=== PATIENT | male | born 1965 | race Caucasian/White ===

== ENCOUNTER 2017-04-21 12:59 | Inpatient (IN) | payer MEDICAID ==
[2017-04-21 13:35] LABS: Hematocrit 41 % (42-52); Hemoglobin 14.2 g/dl (14.0-18.0); Mean Corpuscular HGB Conc 35 g/dl (31-36); Mean Corpuscular Hemoglobin 33 pg (27-31); Mean Corpuscular Volume 95 fL (80-94); Mean Platelet Volume 8 um3 (7.4-10.4); Platelet Count 92 10^3/ul (150-450); Red Blood Count 4.34 10^6/ul (4.0-5.4); Red Cell Distribution Width 14 % (10.5-15); White Blood Count 5.9 10^3/ul (3.5-10.8)
[2017-04-21 13:40] LABS: EGFR Non-African American 89.8 (>60)
[2017-04-21 13:51] LABS: INR 0.99 (0.77-1.02)
[2017-04-21 14:27] LABS: ABS Basophils 0 10^3/ul (0-0.2); ABS Eosinophils 0 10^3/ul (0-0.6); ABS Monocytes 0.5 10^3/ul (0-0.8); ABS Neutrophils 4.5 10^3/ul (1.5-7.7); ABS Nucleated RBC 0 10^3/ul; Eosinophil % 0.1 % (0-6); Lymphocyte % 16.1 % (25-47); Nucleated Red Blood Cells % 0
--- NOTE | 2017-04-21 15:03 | RAD ---
INDICATION: Seizure. COMPARISON: There are no prior studies available for comparison. TECHNIQUE: Contiguous axial sections of the brain were obtained from the skull base to the vertex without contrast. FINDINGS: The ventricles, cisterns and sulci are enlarged consistent with diffuse atrophy. No significant focal abnormality or mass effect is seen. There is no evidence for hemorrhage. No significant focal osseous abnormality is seen. The visualized portion of the paranasal sinuses appear clear. The right mastoid air cells appear clear. There is sclerosis within the left mastoid air cells. IMPRESSION: NO EVIDENCE FOR ACUTE INTRACRANIAL ABNORMALITY.
[2017-04-21] MEDS ORDERED: NS 0.9% 1000 ML* 1,000 ML IV ONE (15:27)
[2017-04-21] MEDS ORDERED: Magnesium Sulfate 1 GM IV* 1 GM/100 ML BAG IV ONE (15:53)
[2017-04-21] MEDS: LORazepam TAB(*) 1 MG PO SCH (16:47)
[2017-04-21] MEDS ORDERED: Magnesium Sulfate IV* 3 GM in NS 0.9% 100 ML* 100 ML IVPB ONE (17:00)
[2017-04-21] MEDS ORDERED: Acetaminophen TAB* 325 MG PO PRN (17:04)
[2017-04-21] MEDS ORDERED: Al Hydrox/Mg Hydrox/Simet LIQ* 30 ML UDC PO PRN (17:04)
[2017-04-21] MEDS ORDERED: Thiamine IV* 100 MG/ML 2 ML VIAL IM ONE (17:06)
[2017-04-21] MEDS ORDERED: Mouth Piece, Nicotine* 1 EACH CARTRIDGE INH PRN (17:23)
--- NOTE | 2017-04-21 17:45 | ED ---
Andres Enciso Stephanie, scribed for Juan F Reddy MD on 04/21/17 at 1319 . Syncope/Near Syncope - HPI Summary HPI Summary: The pt is a 52 y/o M BIBA to the ED with c/o seizure that occurred at 12:30 today. The pt reports drinking a six-pack of beer daily and drinks liquor. He denies drinking today and reports drinking yesterday. The pt denies CP. The pt denies the use of drugs and medications. - History Of Current Complaint Chief Complaint: EDSeizure Time Seen by Provider: 04/21/17 13:03 Hx Obtained From: Patient, EMS Onset/Duration: Sudden Onset Context: Witnessed Aggravating Factor(s): Nothing Alleviating Factor(s): Nothing Associated Signs And Symptoms: Negative - Allergies/Home Medications Allergies/Adverse Reactions: Allergies Allergy/AdvReac Type Severity Reaction Status Date / Time No Known Allergies Allergy Verified 04/21/17 13:06 Home Medications: Home Medications NK [No Home Medications Reported] 04/21/17 [History Confirmed 04/21/17] PMH/Surg Hx/FS Hx/Imm Hx Opthamlomology History: Denies: Hx Legally Blind EENT History: Denies: Hx Deafness Infectious Disease History: No Infectious Disease History: Denies: Traveled Outside the [place] in Last 30 Days - Family History Known Family History: Positive: Unknown - Pt denies family history when asked - Social History Occupation: Employed Part-time Review of Systems Negative: Fever Negative: Chest Pain All Other Systems Reviewed And Are Negative: Yes Physical Exam - Summary Physical Exam Summary: Appearance: The patient is well-nourished in no acute distress and in no acute pain. Skin: The skin is warm and dry and skin color reflects adequate perfusion. HEENT: The head is normocephalic and atraumatic. The pupils are equal and reactive. The conjunctivae are clear and without drainage. Nares are patent and without drainage. Mouth reveals moist mucous membranes and the throat is without erythema and exudate. The external ears are intact. The ear canals are patent and without drainage. The tympanic membranes are intact. Neck: the neck is supple with full range of motion and non-tender. There are no carotid bruits. There is no neck vein distension. Respiratory: Chest is non-tender. Lungs are clear to auscultation and breath sounds are symmetrical and equal. Cardiovascular: Heart is regular rate and rhythm. There is no murmur or rub auscultated. There is no peripheral edema and pulses are symmetrical and equal. Abdomen: The abdomen is soft and non-tender. There are normal bowel sounds heard in all four quadrants and there is no organomegaly palpated. Musculoskeletal: There is no back tenderness noted. Extremities are non-tender with full range of motion. There is good capillary refill. There is no peripheral edema or calf tenderness elicited. Neurological: Patient is alert and oriented to person, place and time. Cranial nerves are grossly intact. Deep tendon reflexes are symmetrical and equal in all four extremities. resting tremor. No Asterixis. May have icterus. No focal neurological finding Psychiatric: The patient has an appropriate affect and does not exhibit any anxiety or depression. Triage Information Reviewed: Yes Vital Signs On Initial Exam: Initial Vitals Temp Pulse Resp BP Pulse Ox 96.7 F 110 18 160/94 96 04/21/17 13:01 04/21/17 13:01 04/21/17 13:01 04/21/17 13:01 04/21/17 13:01 Vital Signs Reviewed: Yes Diagnostics - Vital Signs Vital Signs Temp Pulse Resp BP Pulse Ox 04/21/17 13:01 96.7 F 110 18 160/94 96 - Laboratory Lab Results: Lab Results 04/21/17 04/21/17 04/21/17 Range/Units 13:16 13:16 13:16 WBC 5.9 (3.5-10.8) 10^3/ul RBC 4.34 (4.0-5.4) 10^6/ul Hgb 14.2 (14.0-18.0) g/dl Hct 41 L (42-52) % MCV 95 H (80-94) fL MCH 33 H (27-31) pg MCHC 35 (31-36) g/dl RDW 14 (10.5-15) % Plt Count 92 L (150-450) 10^3/ul MPV 8 (7.4-10.4) um3 Neut % (Auto) 75.4 (38-83) % Lymph % (Auto) 16.1 L (25-47) % [place] % (Auto) 7.7 (1-9) % Eos % (Auto) 0.1 (0-6) % Baso % (Auto) 0.7 (0-2) % Absolute Neuts (auto) 4.5 (1.5-7.7) 10^3/ul Absolute Lymphs (auto) 1.0 (1.0-4.8) 10^3/ul Absolute Monos (auto) 0.5 (0-0.8) 10^3/ul Absolute Eos (auto) 0 (0-0.6) 10^3/ul Absolute Basos (auto) 0 (0-0.2) 10^3/ul Absolute Nucleated RBC 0 10^3/ul Nucleated RBC % 0 Hem Pathologist Commnt Pending INR (Anticoag Therapy) 0.99 (0.77-1.02) Sodium 136 (133-145) mmol/L Potassium 3.5 (3.5-5.0) mmol/L Chloride 99 L (101-111) mmol/L Carbon Dioxide 21 L (22-32) mmol/L Anion Gap 16 H (2-11) mmol/L BUN 22 (6-24) mg/dL Creatinine 0.89 (0.67-1.17) mg/dL Est GFR ( Amer) 115.4 (>60) Est GFR (Non-Af Amer) 89.8 (>60) BUN/Creatinine Ratio 24.7 H (8-20) Glucose 177 H (70-100) mg/dL Lactic Acid (0.5-2.0) mmol/L Calcium 9.5 (8.6-10.3) mg/dL Magnesium 1.3 L (1.9-2.7) mg/dL Total Bilirubin 1.20 H (0.2-1.0) mg/dL AST 82 H (13-39) U/L ALT 72 H (7-52) U/L Alkaline Phosphatase 51 (34-104) U/L Ammonia (16-53) mol/L Total Protein 7.9 (6.4-8.9) g/dL Albumin 4.7 (3.2-5.2) g/dL Globulin 3.2 (2-4) g/dL Albumin/Globulin Ratio 1.5 (1-3) Serum Alcohol < 10 (<10) mg/dL 04/21/17 04/21/17 Range/Units 13:16 13:16 WBC (3.5-10.8) 10^3/ul RBC (4.0-5.4) 10^6/ul Hgb (14.0-18.0) g/dl Hct (42-52) % MCV (80-94) fL MCH (27-31) pg MCHC (31-36) g/dl RDW (10.5-15) % Plt Count (150-450) 10^3/ul MPV (7.4-10.4) um3 Neut % (Auto) (38-83) % Lymph % (Auto) (25-47) % [place] % (Auto) (1-9) % Eos % (Auto) (0-6) % Baso % (Auto) (0-2) % Absolute Neuts (auto) (1.5-7.7) 10^3/ul Absolute Lymphs (auto) (1.0-4.8) 10^3/ul Absolute Monos (auto) (0-0.8) 10^3/ul Absolute Eos (auto) (0-0.6) 10^3/ul Absolute Basos (auto) (0-0.2) 10^3/ul Absolute Nucleated RBC 10^3/ul Nucleated RBC % Hem Pathologist Commnt INR (Anticoag Therapy) (0.77-1.02) Sodium (133-145) mmol/L Potassium (3.5-5.0) mmol/L Chloride (101-111) mmol/L Carbon Dioxide (22-32) mmol/L Anion Gap (2-11) mmol/L BUN (6-24) mg/dL Creatinine (0.67-1.17) mg/dL Est GFR ( Amer) (>60) Est GFR (Non-Af Amer) (>60) BUN/Creatinine Ratio (8-20) Glucose (70-100) mg/dL Lactic Acid 5.1 H* (0.5-2.0) mmol/L Calcium (8.6-10.3) mg/dL Magnesium (1.9-2.7) mg/dL Total Bilirubin (0.2-1.0) mg/dL AST (13-39) U/L ALT (7-52) U/L Alkaline Phosphatase (34-104) U/L Ammonia 62 H (16-53) mol/L Total Protein (6.4-8.9) g/dL Albumin (3.2-5.2) g/dL Globulin (2-4) g/dL Albumin/Globulin Ratio (1-3) Serum Alcohol (<10) mg/dL Result Diagrams: 04/21/17 13:16 04/21/17 13:16 Lab Statement: Any lab studies that have been ordered have been reviewed, and results considered in the medical decision making process. - EKG 13:30 EKG Rhythm: Sinus Tachycardia - 101 BPM EKG Interpretation: Early repolarization Course/Dx Course Of Treatment: Mr. Donahue presented with a first-time seizure. It was described as generalized tonic-clonic to the EMS providers. He admits to daily ETOH use and has some jaundice and laboratory abnomalities. He is clearly withdrawing from ETOH here with tachycardia and tremors and it is likely that he had an ETOH-withdrawal seizure. He is being admitted to the hospitalist service. - Diagnoses Provider Diagnoses: Alcohol withdrawal seizure, Alcoholic hepatitis Discharge - Discharge Plan Condition: Stable Disposition: ADMITTED TO [facility] Referrals: No Primary Care Phys,NOPCP [Primary Care Provider] - The documentation as recorded by the Andres dupont Stephanie accurately reflects the service I personally performed and the decisions made by me, Juan F Reddy MD.
[2017-04-21] MEDS ORDERED: LORazepam TAB(*) 1 MG PO SCH (18:00)
[2017-04-21 18:10] LABS: Urine Appearance Clear; Urine Blood Negative (Negative); Urine Color Yellow; Urine Ketones Trace (Negative); Urine Protein Negative (Negative); Urine Urobilinogen Positive (Negative)
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
[2017-04-21] MEDS: NS 0.9% 1000 ML* 1,000 ML IV SCH (20:45)
[2017-04-22] MEDS ORDERED: NS 0.9% 100 ML* 100 ML ONE (00:11)
[2017-04-22] MEDS: LORazepam TAB(*) 1 MG PO SCH ×2 (01:03→09:13)
[2017-04-22] MEDS: Nicotine Inhaler* 10 MG AMP INH PRN (01:04)
[2017-04-22] MEDS: Mouth Piece, Nicotine* 1 EACH CARTRIDGE INH PRN (01:04)
--- NOTE | 2017-04-22 01:16 | HP ---
HISTORY AND PHYSICAL: DATE OF ADMISSION: 04/21/17 ADDENDUM: Please also note that patient's lactic acid was elevated at 5.1 most likely due to postictal state. We will place the patient on intravenous hydration, but I do not believe we have to repeat this value to document clearance at this point unless patient seizes again. He is going to be placed on seizure precautions. In regards to the patient's DVT prophylaxis, please correct the statement that I dictated above that patient is going to be on DVT prophylaxis with heparin. Patient is low risk and has thrombocytopenia and anticoagulants are not going to be started. Patient is going to be encouraged with ambulation. [id number]/[facility] #: [id number] MTDD
[2017-04-22] MEDS: NS 0.9% 1000 ML* 1,000 ML IV SCH ×2 (05:56→17:16)
[2017-04-22 07:16] LABS: EGFR Non-African American 133.7 (>60)
[2017-04-22 07:37] LABS: ABS Basophils 0 10^3/ul (0-0.2); ABS Eosinophils 0 10^3/ul (0-0.6); ABS Lymphocytes 0.7 10^3/ul (1.0-4.8); ABS Monocytes 0.5 10^3/ul (0-0.8); ABS Neutrophils 3.8 10^3/ul (1.5-7.7); ABS Nucleated RBC 0 10^3/ul; Eosinophil % 0.8 % (0-6); Hematocrit 38 % (42-52); Hemoglobin 13.4 g/dl (14.0-18.0); Lymphocyte % 14.8 % (25-47); Mean Corpuscular HGB Conc 35 g/dl (31-36); Mean Corpuscular Hemoglobin 33 pg (27-31); Mean Corpuscular Volume 95 fL (80-94); Mean Platelet Volume 9 um3 (7.4-10.4); Nucleated Red Blood Cells % 0; Platelet Count 78 10^3/ul (150-450); Red Blood Count 4.04 10^6/ul (4.0-5.4); Red Cell Distribution Width 14 % (10.5-15)
[2017-04-22] MEDS ORDERED: Potassium Chlor TAB* 20 MEQ TAB.ER PO ONE (08:23)
[2017-04-22] MEDS ORDERED: LORazepam TAB(*) 0.5 MG PO SCH ×2 (08:23→21:00)
[2017-04-22] MEDS ORDERED: Lactulose* 15 ML UDC PO SCH (09:00)
[2017-04-22] MEDS: LORazepam TAB(*) 0.5 MG PO SCH ×2 (09:02→16:46)
[2017-04-22] MEDS: Folic Acid TAB* 1 MG PO SCH (09:02)
[2017-04-22] MEDS: Multivitamins/Minerals TAB PO SCH (09:02)
[2017-04-22] MEDS: Thiamine TAB* 100 MG TAB PO SCH (09:02)
--- NOTE | 2017-04-22 16:46 | PN ---
Subjective Date of Service: 04/22/17 Interval History: Pt feels better, today, still with tremors, but denies hallucinations, gait steady Objective Active Medications: Acetaminophen (Tylenol Tab*) 650 mg PO Q6H PRN PRN Reason: FEVER/PAIN Last Admin: 04/22/17 01:08 Dose: 650 mg Al Hydrox/Mg Hydrox/Simethicone (Maalox Plus*) 30 ml PO Q6H PRN PRN Reason: INDIGESTION Device (Nicotine Mouth Piece*) 1 each INH .USE WITH NICOTROL PRN PRN Reason: CRAVING Last Admin: 04/22/17 01:04 Dose: 1 each Device (Nicotine Mouth Piece*) 1 each INH .USE WITH NICOTROL PRN PRN Reason: CRAVING Folic Acid (Folvite Tab*) 1 mg PO DAILY [facility] Last Admin: 04/22/17 09:02 Dose: 1 mg Sodium Chloride (Ns 0.9% 1000 Ml*) 1,000 mls @ 125 mls/hr IV PER RATE [facility] Last Admin: 04/22/17 05:56 Dose: 125 mls/hr Lactulose (Lactulose*) 15 ml PO DAILY [facility] Last Admin: 04/22/17 09:00 Dose: 15 ml Lorazepam (Ativan Tab(*)) 0 - 6 mg PO .PER [facility] PROTOCOL [facility] PRN Reason: Protocol Lorazepam (Ativan Tab(*)) 0.5 mg PO 0100,0900,1700 [facility] Last Admin: 04/22/17 09:02 Dose: 0.5 mg Multivitamins/Minerals (Theragran/Minerals Tab*) 1 tab PO DAILY [facility] Last Admin: 04/22/17 09:02 Dose: 1 tab Nicotine (Nicotine Inhaler*) 10 mg INH Q2H PRN PRN Reason: CRAVING Last Admin: 04/22/17 01:04 Dose: 10 mg Thiamine HCl (Vitamin B-1 Tab*) 100 mg PO DAILY [facility] Last Admin: 04/22/17 09:02 Dose: 100 mg Vital Signs - 8 hr 04/22/17 04/22/17 04/22/17 09:02 10:18 11:05 Temperature 98.0 F 98.1 F Pulse Rate 85 91 Respiratory 18 16 18 Rate Blood Pressure 119/86 139/95 (mmHg) O2 Sat by Pulse 100 99 Oximetry 01/09/0204/22/17 04/22/17 12:52 13:05 15:21 Temperature 98.1 F 98.4 F Pulse Rate 89 95 Respiratory 20 16 18 Rate Blood Pressure 153/93 155/99 (mmHg) O2 Sat by Pulse 99 100 Oximetry Oxygen Devices in Use Now: None Appearance: 52 yo M in nAD, aAOx3 Eyes: No Scleral Icterus, PERRLA Ears/Nose/Mouth/Throat: NL Teeth, Lips, Gums, Mucous Membranes Moist Neck: NL Appearance and Movements; NL JVP, Trachea Midline Respiratory: Symmetrical Chest Expansion and Respiratory Effort, Clear to Auscultation Cardiovascular: NL Sounds; No Murmurs; No JVD, RRR Abdominal: NL Sounds; No Tenderness; No Distention, No Hepatosplenomegaly Lymphatic: No Cervical Adenopathy Extremities: No Edema, No Clubbing, Cyanosis Skin: No Rash or Ulcers, No Nodules or Sclerosis Neurological: Alert and Oriented x 3, - - tremor in b/l UE noted Result Diagrams: 04/22/17 06:28 04/22/17 06:28 Additional Lab and Data: Lab Results 04/21/17 04/21/17 04/21/17 Range/Units 13:16 13:16 13:16 WBC 5.9 (3.5-10.8) 10^3/ul RBC 4.34 (4.0-5.4) 10^6/ul Hgb 14.2 (14.0-18.0) g/dl Hct 41 L (42-52) % MCV 95 H (80-94) fL MCH 33 H (27-31) pg MCHC 35 (31-36) g/dl RDW 14 (10.5-15) % Plt Count 92 L (150-450) 10^3/ul MPV 8 (7.4-10.4) um3 Neut % (Auto) 75.4 (38-83) % Lymph % (Auto) 16.1 L (25-47) % [place] % (Auto) 7.7 (1-9) % Eos % (Auto) 0.1 (0-6) % Baso % (Auto) 0.7 (0-2) % Absolute Neuts (auto) 4.5 (1.5-7.7) 10^3/ul Absolute Lymphs (auto) 1.0 (1.0-4.8) 10^3/ul Absolute Monos (auto) 0.5 (0-0.8) 10^3/ul Absolute Eos (auto) 0 (0-0.6) 10^3/ul Absolute Basos (auto) 0 (0-0.2) 10^3/ul Absolute Nucleated RBC 0 10^3/ul Nucleated RBC % 0 Hem Pathologist Commnt Pending INR (Anticoag Therapy) 0.99 (0.77-1.02) Sodium 136 (133-145) mmol/L Potassium 3.5 (3.5-5.0) mmol/L Chloride 99 L (101-111) mmol/L Carbon Dioxide 21 L (22-32) mmol/L Anion Gap 16 H (2-11) mmol/L BUN 22 (6-24) mg/dL Creatinine 0.89 (0.67-1.17) mg/dL Est GFR ( Amer) 115.4 (>60) Est GFR (Non-Af Amer) 89.8 (>60) BUN/Creatinine Ratio 24.7 H (8-20) Glucose 177 H (70-100) mg/dL Lactic Acid (0.5-2.0) mmol/L Calcium 9.5 (8.6-10.3) mg/dL Magnesium 1.3 L (1.9-2.7) mg/dL Total Bilirubin 1.20 H (0.2-1.0) mg/dL AST 82 H (13-39) U/L ALT 72 H (7-52) U/L Alkaline Phosphatase 51 (34-104) U/L Ammonia (16-53) mol/L Total Protein 7.9 (6.4-8.9) g/dL Albumin 4.7 (3.2-5.2) g/dL Globulin 3.2 (2-4) g/dL Albumin/Globulin Ratio 1.5 (1-3) Serum Alcohol < 10 (<10) mg/dL 04/21/17 04/21/17 Range/Units 13:16 13:16 WBC (3.5-10.8) 10^3/ul RBC (4.0-5.4) 10^6/ul Hgb (14.0-18.0) g/dl Hct (42-52) % MCV (80-94) fL MCH (27-31) pg MCHC (31-36) g/dl RDW (10.5-15) % Plt Count (150-450) 10^3/ul MPV (7.4-10.4) um3 Neut % (Auto) (38-83) % Lymph % (Auto) (25-47) % [place] % (Auto) (1-9) % Eos % (Auto) (0-6) % Baso % (Auto) (0-2) % Absolute Neuts (auto) (1.5-7.7) 10^3/ul Absolute Lymphs (auto) (1.0-4.8) 10^3/ul Absolute Monos (auto) (0-0.8) 10^3/ul Absolute Eos (auto) (0-0.6) 10^3/ul Absolute Basos (auto) (0-0.2) 10^3/ul Absolute Nucleated RBC 10^3/ul Nucleated RBC % Hem Pathologist Commnt INR (Anticoag Therapy) (0.77-1.02) Sodium (133-145) mmol/L Potassium (3.5-5.0) mmol/L Chloride (101-111) mmol/L Carbon Dioxide (22-32) mmol/L Anion Gap (2-11) mmol/L BUN (6-24) mg/dL Creatinine (0.67-1.17) mg/dL Est GFR ( Amer) (>60) Est GFR (Non-Af Amer) (>60) BUN/Creatinine Ratio (8-20) Glucose (70-100) mg/dL Lactic Acid 5.1 H* (0.5-2.0) mmol/L Calcium (8.6-10.3) mg/dL Magnesium (1.9-2.7) mg/dL Total Bilirubin (0.2-1.0) mg/dL AST (13-39) U/L ALT (7-52) U/L Alkaline Phosphatase (34-104) U/L Ammonia 62 H (16-53) mol/L Total Protein (6.4-8.9) g/dL Albumin (3.2-5.2) g/dL Globulin (2-4) g/dL Albumin/Globulin Ratio (1-3) Serum Alcohol (<10) mg/dL Assess/Plan/Problems-Billing Assessment: 52 yo with h/o ETOH abuse presented after a seizure - Patient Problems (1) Alcohol withdrawal seizure Comment: on Ativan taper, doing better, anticipated d/c tomorrow Cont thiamine and Folate. (2) Hypomagnesemia Comment: replaced (3) DVT prophylaxis Comment: ambulation Status and Disposition: OBV changed to inpatient, plan to d/c in aM
[2017-04-22] MEDS ORDERED: Ziprasidone IM INJ* 20 MG/ML VIAL IM ONE (22:08)
[2017-04-22] MEDS ORDERED: LORazepam INJ* 2 MG/ML 1 ML VIAL IV PUSH ONE (22:35)
[2017-04-22] MEDS ORDERED: LORazepam INJ* 2 MG/ML 1 ML VIAL ONE (22:49)
[2017-04-22] MEDS: LORazepam INJ* 2 MG/ML 1 ML VIAL IV SCH (23:37)
[2017-04-22] MEDS: LORazepam INJ* 2 MG/ML 1 ML VIAL IM SCH (23:37)
[2017-04-23] MEDS ORDERED: Ziprasidone IM INJ* 20 MG/ML VIAL INJ ONE (00:40)
[2017-04-23] MEDS: LORazepam INJ* 2 MG/ML 1 ML VIAL IM SCH ×6 (01:50→12:23)
[2017-04-23] MEDS: LORazepam INJ* 2 MG/ML 1 ML VIAL IV SCH ×2 (08:10→17:44)
[2017-04-23] MEDS ORDERED: Haloperidol INJ IV/IM* 5 MG/ML AMP ONE (10:28)
[2017-04-23] MEDS ORDERED: Magnesium Sulfate 1 GM IV* 1 GM/100 ML BAG IV ONE (10:35)
--- NOTE | 2017-04-23 10:35 | PN ---
Subjective Date of Service: 04/23/17 Interval History: Pt got confused , agitated last night. Got 20 mg of Geodon and was placed in leather restraints. Objective Active Medications: Acetaminophen (Tylenol Tab*) 650 mg PO Q6H PRN PRN Reason: FEVER/PAIN Last Admin: 04/22/17 01:08 Dose: 650 mg Al Hydrox/Mg Hydrox/Simethicone (Maalox Plus*) 30 ml PO Q6H PRN PRN Reason: INDIGESTION Device (Nicotine Mouth Piece*) 1 each INH .USE WITH NICOTROL PRN PRN Reason: CRAVING Last Admin: 04/22/17 01:04 Dose: 1 each Folic Acid (Folvite Tab*) 1 mg PO DAILY [facility] Last Admin: 04/22/17 09:02 Dose: 1 mg Haloperidol Lactate (Haldol Inj Iv/Im*) 5 mg IV SLOW PU Q6H PRN PRN Reason: AGITATION Sodium Chloride (Ns 0.9% 1000 Ml*) 1,000 mls @ 125 mls/hr IV PER RATE [facility] Last Admin: 04/22/17 17:16 Dose: 125 mls/hr Lorazepam (Ativan Inj*) 0 - 6 mg IM .PER [facility] PROTOCOL [facility] PRN Reason: Protocol Last Admin: 04/23/17 10:02 Dose: 3 mg Lorazepam (Ativan Inj*) 1 mg IV Q8H [facility] PRN Reason: Taper Stop: 04/25/17 19:44 Last Admin: 04/23/17 08:10 Dose: 1 mg Multivitamins/Minerals (Theragran/Minerals Tab*) 1 tab PO DAILY [facility] Last Admin: 04/22/17 09:02 Dose: 1 tab Nicotine (Nicotine Inhaler*) 10 mg INH Q2H PRN PRN Reason: CRAVING Last Admin: 04/22/17 01:04 Dose: 10 mg Thiamine HCl (Vitamin B-1 Tab*) 100 mg PO DAILY [facility] Last Admin: 04/22/17 09:02 Dose: 100 mg Vital Signs - 8 hr 04/23/17 04/23/17 04/23/17 03:00 03:26 03:33 Temperature 97.5 F Pulse Rate 91 Respiratory 18 18 18 Rate Blood Pressure 133/104 (mmHg) O2 Sat by Pulse 99 Oximetry 04/23/17 04/23/17 04/23/17 05:06 06:02 07:59 Temperature Pulse Rate 120 Respiratory 16 18 18 Rate Blood Pressure 128/89 (mmHg) O2 Sat by Pulse Oximetry 04/23/17 04/23/17 04/23/17 08:10 09:49 10:02 Temperature Pulse Rate 95 Respiratory 20 18 24 Rate Blood Pressure 129/89 (mmHg) O2 Sat by Pulse 98 Oximetry Oxygen Devices in Use Now: None Appearance: 52 yo M confused, intermittenlty agitated, the moment we tried to release the restraints he attempted to pull his IV and get OOB, very tremolous Eyes: No Scleral Icterus, PERRLA Ears/Nose/Mouth/Throat: NL Teeth, Lips, Gums, Mucous Membranes Moist Neck: NL Appearance and Movements; NL JVP, Trachea Midline Respiratory: Symmetrical Chest Expansion and Respiratory Effort, Clear to Auscultation Cardiovascular: NL Sounds; No Murmurs; No JVD, RRR Abdominal: NL Sounds; No Tenderness; No Distention Lymphatic: No Cervical Adenopathy Extremities: No Edema, No Clubbing, Cyanosis Skin: No Rash or Ulcers, No Nodules or Sclerosis Neurological: - - tremolous , disoriented Result Diagrams: 04/22/17 06:28 04/22/17 06:28 Additional Lab and Data: Lab Results 04/21/17 04/21/17 04/21/17 Range/Units 13:16 13:16 13:16 WBC 5.9 (3.5-10.8) 10^3/ul RBC 4.34 (4.0-5.4) 10^6/ul Hgb 14.2 (14.0-18.0) g/dl Hct 41 L (42-52) % MCV 95 H (80-94) fL MCH 33 H (27-31) pg MCHC 35 (31-36) g/dl RDW 14 (10.5-15) % Plt Count 92 L (150-450) 10^3/ul MPV 8 (7.4-10.4) um3 Neut % (Auto) 75.4 (38-83) % Lymph % (Auto) 16.1 L (25-47) % [place] % (Auto) 7.7 (1-9) % Eos % (Auto) 0.1 (0-6) % Baso % (Auto) 0.7 (0-2) % Absolute Neuts (auto) 4.5 (1.5-7.7) 10^3/ul Absolute Lymphs (auto) 1.0 (1.0-4.8) 10^3/ul Absolute Monos (auto) 0.5 (0-0.8) 10^3/ul Absolute Eos (auto) 0 (0-0.6) 10^3/ul Absolute Basos (auto) 0 (0-0.2) 10^3/ul Absolute Nucleated RBC 0 10^3/ul Nucleated RBC % 0 Hem Pathologist Commnt Pending INR (Anticoag Therapy) 0.99 (0.77-1.02) Sodium 136 (133-145) mmol/L Potassium 3.5 (3.5-5.0) mmol/L Chloride 99 L (101-111) mmol/L Carbon Dioxide 21 L (22-32) mmol/L Anion Gap 16 H (2-11) mmol/L BUN 22 (6-24) mg/dL Creatinine 0.89 (0.67-1.17) mg/dL Est GFR ( Amer) 115.4 (>60) Est GFR (Non-Af Amer) 89.8 (>60) BUN/Creatinine Ratio 24.7 H (8-20) Glucose 177 H (70-100) mg/dL Lactic Acid (0.5-2.0) mmol/L Calcium 9.5 (8.6-10.3) mg/dL Magnesium 1.3 L (1.9-2.7) mg/dL Total Bilirubin 1.20 H (0.2-1.0) mg/dL AST 82 H (13-39) U/L ALT 72 H (7-52) U/L Alkaline Phosphatase 51 (34-104) U/L Ammonia (16-53) mol/L Total Protein 7.9 (6.4-8.9) g/dL Albumin 4.7 (3.2-5.2) g/dL Globulin 3.2 (2-4) g/dL Albumin/Globulin Ratio 1.5 (1-3) Serum Alcohol < 10 (<10) mg/dL 04/21/17 04/21/17 Range/Units 13:16 13:16 WBC (3.5-10.8) 10^3/ul RBC (4.0-5.4) 10^6/ul Hgb (14.0-18.0) g/dl Hct (42-52) % MCV (80-94) fL MCH (27-31) pg MCHC (31-36) g/dl RDW (10.5-15) % Plt Count (150-450) 10^3/ul MPV (7.4-10.4) um3 Neut % (Auto) (38-83) % Lymph % (Auto) (25-47) % [place] % (Auto) (1-9) % Eos % (Auto) (0-6) % Baso % (Auto) (0-2) % Absolute Neuts (auto) (1.5-7.7) 10^3/ul Absolute Lymphs (auto) (1.0-4.8) 10^3/ul Absolute Monos (auto) (0-0.8) 10^3/ul Absolute Eos (auto) (0-0.6) 10^3/ul Absolute Basos (auto) (0-0.2) 10^3/ul Absolute Nucleated RBC 10^3/ul Nucleated RBC % Hem Pathologist Commnt INR (Anticoag Therapy) (0.77-1.02) Sodium (133-145) mmol/L Potassium (3.5-5.0) mmol/L Chloride (101-111) mmol/L Carbon Dioxide (22-32) mmol/L Anion Gap (2-11) mmol/L BUN (6-24) mg/dL Creatinine (0.67-1.17) mg/dL Est GFR ( Amer) (>60) Est GFR (Non-Af Amer) (>60) BUN/Creatinine Ratio (8-20) Glucose (70-100) mg/dL Lactic Acid 5.1 H* (0.5-2.0) mmol/L Calcium (8.6-10.3) mg/dL Magnesium (1.9-2.7) mg/dL Total Bilirubin (0.2-1.0) mg/dL AST (13-39) U/L ALT (7-52) U/L Alkaline Phosphatase (34-104) U/L Ammonia 62 H (16-53) mol/L Total Protein (6.4-8.9) g/dL Albumin (3.2-5.2) g/dL Globulin (2-4) g/dL Albumin/Globulin Ratio (1-3) Serum Alcohol (<10) mg/dL Assess/Plan/Problems-Billing Assessment: 52 yo with h/o ETOH abuse presented after a seizure - Patient Problems (1) Alcohol withdrawal seizure Comment: severe DT with confusion and agitation. Increased scheduled Ativan, cont WAM and Haldol prn Cont thiamine and Folate. (2) Hypomagnesemia Comment: replaced (3) DVT prophylaxis Comment: ambulation Status and Disposition: inpatient
[2017-04-23] MEDS ORDERED: Haloperidol INJ IV/IM* 5 MG/ML AMP IV SLOW PU ONE (10:38)
[2017-04-23] MEDS: Thiamine TAB* 100 MG TAB PO SCH (11:12)
[2017-04-23] MEDS: Multivitamins/Minerals TAB PO SCH (11:12)
[2017-04-23] MEDS: Folic Acid TAB* 1 MG PO SCH (11:12)
[2017-04-23] MEDS: D5W NS 0.9% 20Meq KCL 1000 ML* 1,000 ML IV SCH ×2 (11:36→21:37)
[2017-04-23] MEDS: Haloperidol INJ IV/IM* 5 MG/ML AMP IV SLOW PU PRN (12:25)
[2017-04-23] MEDS ORDERED: LORazepam INJ* 2 MG/ML 1 ML VIAL ONE (13:37)
[2017-04-23] MEDS ORDERED: LORazepam INJ* 2 MG/ML 1 ML VIAL IV PUSH ONE (13:37)
[2017-04-23] MEDS ORDERED: Ziprasidone IM INJ* 20 MG/ML VIAL IM ONE ×2 (13:37→14:13)
[2017-04-23] MEDS ORDERED: Diazepam SYRINGE* 5 MG/ML 2 ML SYRINGE (10 MG total) IV ONE ×2 (13:49→14:17)
--- NOTE | 2017-04-23 13:56 | CONSULT ---
Consult Consult: CRITICAL CARE MEDICINE DATE: 04/23/17 TIME: 8224 REFERRING PROVIDER: Shruthi REASON/CHIEF COMPLAINT: Refractory Dts HISTORY OF PRESENT ILLNESS: 52 yo M with alcoholism presenting with Dts and associated seziures on presentation 04/21. etoh level was nil then as he had stopped drinking and had witnessed seizure. Treated with supplements and benzos , wam protocol, his condition escalating today requiring restraints. REVIEW OF SYSTEMS: As per HPI. PAST MEDICAL HISTORY: As per HPI. MEDICATIONS: MVI ALLERGIES: None. SOCIAL HISTORY: Reviewed. Lives with friend FAMILY HISTORY: DM PHYSICAL EXAM: Vital Signs: Reviewed. Hr 120s. SBP 130s. RR teens. Neurologic: agitates quickly. won't focus eye contact. won't answer questions directly. tells me "Valentine Donnelly" HEENT: anciteric, perrl Cardiovascular: tachy S1 S2, no m appreciated Respiratory: regular pattern for dynamics Abdomen: soft, bt Extremities: strong, nt, in restraints Access: 1 piv LABS: Reviewed. IMAGING: Reviewed. MEDICATIONS: Reviewed. ASSESSMENT: 52 M Escalating Delirium Tremens, with seizures on admission PLAN: Neurologic: more aggressive benzos and can utilize geodon and start precedex gtt. vit suppl Cardiovascular: perfusing. tachy. can still utilize vol and keep ivf. Respiratory: tolerable but observation for airway/aspiration risks Gastrointestinal: npo given safety. H2 sup in the interim Renal/Metabolic: f/u lytes. mag replete. Infectious Disease: no infective burden Hematology: place on lovenox subq prophylaxis given condition change Endocrine: stable Musculoskeletal: f/u for dc restraints Psych/Social: will look for family updates Supportive and preventative care as ordered. SUP: H2 VTE prophylaxis: lovenox Restraints: Reviewed and required presently Disposition: ICU Code Status: Full Critical Care Time: 39min Negar Fitzgerald DO
[2017-04-23] MEDS ORDERED: Dexmedetomidine* 200 MCG in NS 0.9% 50 ML* 48 ML IVPB SCH ×2 (14:00→15:17)
[2017-04-23] MEDS ORDERED: LORazepam INJ* 2 MG/ML 1 ML VIAL IV PUSH PRN (15:25)
--- NOTE | 2017-04-23 15:31 | PN ---
Progress Note - Progress Note Date of Service: 04/23/17 Note: CRITICAL CARE MEDICINE DATE: 04/23/17 TIME: 1515 Settled out a little better but with ongoing Dts. Further benzos as needed and via WAM. Started precedex and would titrate up to maintain and follow hemodynamics. 0.7 now and would likely need to max at 1.4 dose. Requiring restraints for his acute delirim and risk at self and others but continued to look to downgrade with escalating medical therapy needs. Disposition: ICU Code Status: Full Critical Care Time: 15min Negar Fitzgerald DO
[2017-04-23] MEDS: Dexmedetomidine* 200 MCG in NS 0.9% 50 ML* 48 ML IVPB SCH (18:06)
[2017-04-23] MEDS: Ziprasidone IM INJ* 20 MG/ML VIAL IM PRN (21:29)
[2017-04-23] MEDS ORDERED: Dexmedetomidine* 400 MCG in NS 0.9% 100 ML* 96 ML IVPB SCH (23:00)
[2017-04-24] MEDS: LORazepam INJ* 2 MG/ML 1 ML VIAL IM SCH ×3 (01:51→13:27)
[2017-04-24] MEDS: Haloperidol INJ IV/IM* 5 MG/ML AMP IV SLOW PU PRN (02:05)
[2017-04-24] MEDS: LORazepam INJ* 2 MG/ML 1 ML VIAL IV SCH ×2 (03:45→15:46)
[2017-04-24] MEDS: D5W NS 0.9% 20Meq KCL 1000 ML* 1,000 ML IV SCH ×2 (05:39→13:56)
[2017-04-24] MEDS: Ziprasidone IM INJ* 20 MG/ML VIAL IM PRN (06:05)
[2017-04-24] MEDS: Dexmedetomidine* 400 MCG in NS 0.9% 100 ML* 96 ML IVPB SCH ×4 (06:48→21:06)
[2017-04-24 06:56] LABS: EGFR Non-African American 133.7 (>60)
[2017-04-24] MEDS: Folic Acid TAB* 1 MG PO SCH (09:32)
[2017-04-24] MEDS: Thiamine TAB* 100 MG TAB PO SCH (09:33)
[2017-04-24] MEDS: Multivitamins/Minerals TAB PO SCH (09:33)
[2017-04-24] MEDS ORDERED: fentaNYL* 50 MCG/ML 2 ML VIAL (100 MCG VIAL) IV SLOW PU ONE (10:31)
[2017-04-24] MEDS ORDERED: fentaNYL* 50 MCG/ML 2 ML VIAL (100 MCG VIAL) ONE (10:32)
--- NOTE | 2017-04-24 12:26 | PN ---
Progress Note - Progress Note Date of Service: 04/24/17 Note: CRITICAL CARE MEDICINE DATE: 04/24/17 TIME: 1045 SUBJECTIVE: Patient seen and examined. about the same. PHYSICAL EXAM: Vital Signs: Reviewed. Hr better but bp still up. Neurologic: agitates quickly still but otherwise more lethargic usually. not following my commands. HEENT: anciteric, perrl Cardiovascular: reg S1 S2, no m appreciated Respiratory: regular pattern; clear Abdomen: soft, bt Extremities: strong, nt, in restraints Access: piv LABS: Reviewed. IMAGING: Reviewed. MEDICATIONS: Reviewed. ASSESSMENT: 52 M Escalating Delirium Tremens, with seizures on admission Etoh abuse Tob abuse PLAN: Neurologic: better control with precedex gtt. still risk for self injury given delirium; and threats towards staff. soft wrist restraints required. vit suppl. WAM protocol continued. may need clonidine td Cardiovascular: hemodynamics well. hr ok. bp followed. Respiratory: stable Gastrointestinal: npo given safety. H2 sup. check ammonia level stuart Renal/Metabolic: f/u lytes. Infectious Disease: no infective burden Hematology: lovenox subq prophylaxis Endocrine: stable Musculoskeletal: f/u dc restraints Psych/Social: social f/u Supportive and preventative care as ordered. SUP: H2 VTE prophylaxis: lovenox Restraints: Reviewed and required presently Disposition: ICU Code Status: Full Critical Care Time: 30min Negar Fitzgerald DO
[2017-04-24] MEDS ORDERED: Famotidine IV * 20 MG in NS 0.9% 100 ML* 100 ML IVPB SCH (13:00)
[2017-04-24] MEDS: Nicotine PATCH 14 MG/24 HR* PATCH TRANSDERM SCH (13:53)
[2017-04-24] MEDS: Famotidine IV* 10 MG/ML 2 ML (20 mg) IV SCH (15:04)
[2017-04-25] MEDS: Dexmedetomidine* 400 MCG in NS 0.9% 100 ML* 96 ML IVPB SCH ×2 (00:46→05:17)
[2017-04-25] MEDS: D5W NS 0.9% 20Meq KCL 1000 ML* 1,000 ML IV SCH (02:04)
[2017-04-25] MEDS: LORazepam INJ* 2 MG/ML 1 ML VIAL IV SCH ×2 (03:46→16:23)
[2017-04-25 05:14] LABS: Hematocrit 40 % (42-52); Hemoglobin 13.7 g/dl (14.0-18.0); Mean Corpuscular HGB Conc 34 g/dl (31-36); Mean Corpuscular Hemoglobin 33 pg (27-31); Mean Corpuscular Volume 95 fL (80-94); Mean Platelet Volume 9 um3 (7.4-10.4); Platelet Count 101 10^3/ul (150-450); Red Blood Count 4.22 10^6/ul (4.0-5.4); Red Cell Distribution Width 13 % (10.5-15); White Blood Count 6.4 10^3/ul (3.5-10.8)
[2017-04-25 05:27] LABS: EGFR Non-African American 150.1 (>60)
[2017-04-25] MEDS ORDERED: Magnesium Sulfate 4 GM IV IVPB ONE (05:45)
[2017-04-25] MEDS: Nicotine Patch Removal NOTE FOLLOW UP SCH (06:18)
[2017-04-25] MEDS: Thiamine TAB* 100 MG TAB PO SCH (08:56)
[2017-04-25] MEDS: Folic Acid TAB* 1 MG PO SCH (08:56)
[2017-04-25] MEDS: Nicotine PATCH 14 MG/24 HR* PATCH TRANSDERM SCH (08:56)
[2017-04-25] MEDS: Multivitamins/Minerals TAB PO SCH (08:56)
[2017-04-25] MEDS: Famotidine IV* 10 MG/ML 2 ML (20 mg) IV SCH (08:57)
--- NOTE | 2017-04-25 10:38 | PN ---
Progress Note - Progress Note Date of Service: 04/25/17 Note: CRITICAL CARE MEDICINE DATE: 04/25/17 TIME: 930 SUBJECTIVE: Patient seen and examined. much better PHYSICAL EXAM: Vital Signs: Reviewed. Neurologic: communicating normally HEENT: anciteric, perrl Cardiovascular: reg S1 S2, no m appreciated Respiratory: regular, clear Abdomen: soft, bt Extremities: no edema Access: piv LABS: Reviewed. IMAGING: Reviewed. MEDICATIONS: Reviewed. ASSESSMENT: 52 M Delirium Tremens, with seizures on admission - improved Etoh abuse Tob abuse PLAN: markedly better. clear and holding capacity Off precedex gtt today. Still utilize WAM today F/u for any further withdrawal potentials, but looks like he is through ok for floor Social work f/u Supportive and preventative care as ordered. SUP: po VTE prophylaxis: lovenox Restraints: off Disposition: to floor; perhaps home tomorrow Code Status: Full Critical Care Time: 30min FAnusha Fitzgerald DO
[2017-04-25] MEDS: LORazepam INJ* 2 MG/ML 1 ML VIAL IM SCH ×3 (16:20→22:09)
[2017-04-25] MEDS: Dexmedetomidine* 200 MCG in NS 0.9% 50 ML* 48 ML IVPB SCH (19:38)
[2017-04-26] MEDS: LORazepam INJ* 2 MG/ML 1 ML VIAL IM SCH ×9 (00:28→22:33)
[2017-04-26] MEDS: Haloperidol INJ IV/IM* 5 MG/ML AMP IV SLOW PU PRN (03:43)
[2017-04-26] MEDS: Mouth Piece, Nicotine* 1 EACH CARTRIDGE INH PRN (06:47)
[2017-04-26] MEDS: Nicotine Patch Removal NOTE FOLLOW UP SCH (06:51)
[2017-04-26] MEDS: Nicotine Inhaler* 10 MG AMP INH PRN ×2 (06:51→12:49)
[2017-04-26] MEDS: Folic Acid TAB* 1 MG PO SCH (08:17)
[2017-04-26] MEDS: Multivitamins/Minerals TAB PO SCH (08:17)
[2017-04-26] MEDS: Nicotine PATCH 14 MG/24 HR* PATCH TRANSDERM SCH (08:18)
[2017-04-26] MEDS: Thiamine TAB* 100 MG TAB PO SCH (08:18)
--- NOTE | 2017-04-26 15:55 | PN ---
Subjective Date of Service: 04/26/17 Interval History: Dressed this AM reporting that he was planning on leaving the hospital Evaluated by this author. Denies VELA, N/V, LH, hallucinations He is unable to tell me where he is, the year or why he is in the hospital no longer requesting to leave but currently would lack capacity to do so AMA Objective Active Medications: Acetaminophen (Tylenol Tab*) 650 mg PO Q6H PRN PRN Reason: FEVER/PAIN Last Admin: 04/22/17 01:08 Dose: 650 mg Al Hydrox/Mg Hydrox/Simethicone (Maalox Plus*) 30 ml PO Q6H PRN PRN Reason: INDIGESTION Device (Nicotine Mouth Piece*) 1 each INH .USE WITH NICOTROL PRN PRN Reason: CRAVING Last Admin: 04/26/17 06:47 Dose: 1 each Folic Acid (Folvite Tab*) 1 mg PO DAILY [facility] Last Admin: 04/26/17 08:17 Dose: 1 mg Lorazepam (Ativan Inj*) 0 - 6 mg IM .PER [facility] PROTOCOL [facility] PRN Reason: Protocol Last Admin: 04/26/17 10:37 Dose: 2 mg Multivitamins/Minerals (Theragran/Minerals Tab*) 1 tab PO DAILY [facility] Last Admin: 04/26/17 08:17 Dose: 1 tab Nicotine (Nicotine Inhaler*) 10 mg INH Q2H PRN PRN Reason: CRAVING Last Admin: 04/26/17 12:49 Dose: 10 mg Nicotine (Nicotine Patch 14 Mg/24 Hr*) 1 patch TRANSDERM DAILY [facility] Last Admin: 04/26/17 08:18 Dose: 1 patch Pharmacy Profile Note (Nicotine Patch Removal Note*) 1 note FOLLOW UP 0600 [facility] Last Admin: 04/26/17 06:51 Dose: 1 note Thiamine HCl (Vitamin B-1 Tab*) 100 mg PO DAILY [facility] Last Admin: 04/26/17 08:18 Dose: 100 mg Ziprasidone (Geodon Im Inj*) 10 mg IM Q8H PRN PRN Reason: AGITATION Last Admin: 04/24/17 06:05 Dose: 10 mg Vital Signs - 8 hr 04/26/17 04/26/17 04/26/17 07:53 08:00 08:19 Temperature Pulse Rate 118 Respiratory 16 16 18 Rate Blood Pressure 118/82 (mmHg) O2 Sat by Pulse 99 Oximetry 04/26/17 04/26/17 04/26/17 08:54 10:16 10:37 Temperature 98.5 F Pulse Rate 116 Respiratory 18 16 16 Rate Blood Pressure 133/75 (mmHg) O2 Sat by Pulse 99 Oximetry 04/26/17 04/26/17 04/26/17 10:52 11:55 12:17 Temperature 98.8 F Pulse Rate 110 Respiratory 16 17 16 Rate Blood Pressure 117/75 (mmHg) O2 Sat by Pulse 100 Oximetry 04/26/17 13:53 Temperature 98.7 F Pulse Rate 114 Respiratory 16 Rate Blood Pressure 120/71 (mmHg) O2 Sat by Pulse 100 Oximetry Oxygen Devices in Use Now: None Appearance: sitting in chair, NAD Eyes: No Scleral Icterus, PERRLA Ears/Nose/Mouth/Throat: - - poor dentintion Neck: NL Appearance and Movements; NL JVP, Trachea Midline Respiratory: Symmetrical Chest Expansion and Respiratory Effort, Clear to Auscultation Cardiovascular: NL Sounds; No Murmurs; No JVD, RRR Abdominal: NL Sounds; No Tenderness; No Distention, No Hepatosplenomegaly Lymphatic: No Cervical Adenopathy Extremities: No Edema, - Neurological: - - AOx1 to self, temulous with arms outstretched Result Diagrams: 04/25/17 05:05 04/25/17 05:05 Additional Lab and Data: Lab Results 04/21/17 04/21/17 04/21/17 Range/Units 13:16 13:16 13:16 WBC 5.9 (3.5-10.8) 10^3/ul RBC 4.34 (4.0-5.4) 10^6/ul Hgb 14.2 (14.0-18.0) g/dl Hct 41 L (42-52) % MCV 95 H (80-94) fL MCH 33 H (27-31) pg MCHC 35 (31-36) g/dl RDW 14 (10.5-15) % Plt Count 92 L (150-450) 10^3/ul MPV 8 (7.4-10.4) um3 Neut % (Auto) 75.4 (38-83) % Lymph % (Auto) 16.1 L (25-47) % [place] % (Auto) 7.7 (1-9) % Eos % (Auto) 0.1 (0-6) % Baso % (Auto) 0.7 (0-2) % Absolute Neuts (auto) 4.5 (1.5-7.7) 10^3/ul Absolute Lymphs (auto) 1.0 (1.0-4.8) 10^3/ul Absolute Monos (auto) 0.5 (0-0.8) 10^3/ul Absolute Eos (auto) 0 (0-0.6) 10^3/ul Absolute Basos (auto) 0 (0-0.2) 10^3/ul Absolute Nucleated RBC 0 10^3/ul Nucleated RBC % 0 Hem Pathologist Commnt Pending INR (Anticoag Therapy) 0.99 (0.77-1.02) Sodium 136 (133-145) mmol/L Potassium 3.5 (3.5-5.0) mmol/L Chloride 99 L (101-111) mmol/L Carbon Dioxide 21 L (22-32) mmol/L Anion Gap 16 H (2-11) mmol/L BUN 22 (6-24) mg/dL Creatinine 0.89 (0.67-1.17) mg/dL Est GFR ( Amer) 115.4 (>60) Est GFR (Non-Af Amer) 89.8 (>60) BUN/Creatinine Ratio 24.7 H (8-20) Glucose 177 H (70-100) mg/dL Lactic Acid (0.5-2.0) mmol/L Calcium 9.5 (8.6-10.3) mg/dL Magnesium 1.3 L (1.9-2.7) mg/dL Total Bilirubin 1.20 H (0.2-1.0) mg/dL AST 82 H (13-39) U/L ALT 72 H (7-52) U/L Alkaline Phosphatase 51 (34-104) U/L Ammonia (16-53) mol/L Total Protein 7.9 (6.4-8.9) g/dL Albumin 4.7 (3.2-5.2) g/dL Globulin 3.2 (2-4) g/dL Albumin/Globulin Ratio 1.5 (1-3) Serum Alcohol < 10 (<10) mg/dL 04/21/17 04/21/17 Range/Units 13:16 13:16 WBC (3.5-10.8) 10^3/ul RBC (4.0-5.4) 10^6/ul Hgb (14.0-18.0) g/dl Hct (42-52) % MCV (80-94) fL MCH (27-31) pg MCHC (31-36) g/dl RDW (10.5-15) % Plt Count (150-450) 10^3/ul MPV (7.4-10.4) um3 Neut % (Auto) (38-83) % Lymph % (Auto) (25-47) % [place] % (Auto) (1-9) % Eos % (Auto) (0-6) % Baso % (Auto) (0-2) % Absolute Neuts (auto) (1.5-7.7) 10^3/ul Absolute Lymphs (auto) (1.0-4.8) 10^3/ul Absolute Monos (auto) (0-0.8) 10^3/ul Absolute Eos (auto) (0-0.6) 10^3/ul Absolute Basos (auto) (0-0.2) 10^3/ul Absolute Nucleated RBC 10^3/ul Nucleated RBC % Hem Pathologist Commnt INR (Anticoag Therapy) (0.77-1.02) Sodium (133-145) mmol/L Potassium (3.5-5.0) mmol/L Chloride (101-111) mmol/L Carbon Dioxide (22-32) mmol/L Anion Gap (2-11) mmol/L BUN (6-24) mg/dL Creatinine (0.67-1.17) mg/dL Est GFR ( Amer) (>60) Est GFR (Non-Af Amer) (>60) BUN/Creatinine Ratio (8-20) Glucose (70-100) mg/dL Lactic Acid 5.1 H* (0.5-2.0) mmol/L Calcium (8.6-10.3) mg/dL Magnesium (1.9-2.7) mg/dL Total Bilirubin (0.2-1.0) mg/dL AST (13-39) U/L ALT (7-52) U/L Alkaline Phosphatase (34-104) U/L Ammonia 62 H (16-53) mol/L Total Protein (6.4-8.9) g/dL Albumin (3.2-5.2) g/dL Globulin (2-4) g/dL Albumin/Globulin Ratio (1-3) Serum Alcohol (<10) mg/dL Microbiology and Other Data: Microbiology 04/23/17 14:30 Nasal Screen MRSA (PCR)(VANESSA) - Final Nasal Mrsa Negative Assess/Plan/Problems-Billing Assessment: 52 yo with h/o ETOH abuse presented after a seizure - Patient Problems (1) Delirium tremens Comment: improved still requiring ativan per WAM off precedex since yesterday c/w WAM monitor (2) Tobacco abuse Comment: patch and inhaler (3) Alcohol withdrawal seizure Comment: in setting of etoh withdrawal c/w WAM Cont thiamine and Folate. (4) Hypomagnesemia Comment: monitor - next labs 04/27/17 (5) DVT prophylaxis Comment: lovenox Status and Disposition: inpatient
[2017-04-26] MEDS: Enoxaparin(*) 40 MG/0.4 ML SYR SUBCUT SCH (16:50)
--- NOTE | 2017-04-26 20:11 | PN ---
Hospitalist Progress Note Date of Service: 04/26/17 Asked by nurse to eval for AMA. 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 Pt thinks he is in a hotel and is unable to tell me the consequences or risks of signing out AMA. At this point patient does not have capacity to sign out AMA.
[2017-04-26] MEDS ORDERED: Haloperidol INJ IV/IM* 5 MG/ML AMP IV SLOW PU PRN (23:04)
[2017-04-26] MEDS ORDERED: Haloperidol INJ IV/IM* 5 MG/ML AMP ONE (23:10)
[2017-04-27] MEDS: Nicotine Patch Removal NOTE FOLLOW UP SCH (06:04)
[2017-04-27] MEDS: Nicotine PATCH 14 MG/24 HR* PATCH TRANSDERM SCH (08:12)
[2017-04-27] MEDS: Folic Acid TAB* 1 MG PO SCH (08:12)
[2017-04-27] MEDS: Thiamine TAB* 100 MG TAB PO SCH (08:12)
[2017-04-27] MEDS: Multivitamins/Minerals TAB PO SCH (08:12)
[2017-04-27 09:39] LABS: EGFR Non-African American 100.1 (>60)
[2017-04-27] MEDS: LORazepam INJ* 2 MG/ML 1 ML VIAL IM SCH ×3 (12:30→16:42)
[2017-04-27] MEDS ORDERED: Magnesium Sulfate 2 GM IV* 2 GM/50 ML BAG IVPB ONE (14:58)
--- NOTE | 2017-04-27 15:01 | PN ---
Subjective Date of Service: 04/27/17 Interval History: Events reviewed. Asked to leave AMA overnight but did not have capacity. No longer requesting to leave this AM. Still receiving ativan per [place] and haldol overnight. Objective Active Medications: Acetaminophen (Tylenol Tab*) 650 mg PO Q6H PRN PRN Reason: FEVER/PAIN Last Admin: 04/22/17 01:08 Dose: 650 mg Al Hydrox/Mg Hydrox/Simethicone (Maalox Plus*) 30 ml PO Q6H PRN PRN Reason: INDIGESTION Device (Nicotine Mouth Piece*) 1 each INH .USE WITH NICOTROL PRN PRN Reason: CRAVING Last Admin: 04/26/17 06:47 Dose: 1 each Enoxaparin Sodium (Lovenox(*)) 40 mg SUBCUT Q24H [facility] Last Admin: 04/26/17 16:50 Dose: 40 mg Folic Acid (Folvite Tab*) 1 mg PO DAILY [facility] Last Admin: 04/27/17 08:12 Dose: 1 mg Haloperidol Lactate (Haldol Inj Iv/Im*) 5 mg IV SLOW PU Q6H PRN PRN Reason: AGITATION Last Admin: 04/26/17 23:14 Dose: 5 mg Magnesium Sulfate (Magnesium Sulfate 2 Gm Iv*) 50 mls @ 50 mls/hr IVPB ONCE ONE Stop: 04/27/17 15:57 Lorazepam (Ativan Inj*) 0 - 6 mg IM .PER [facility] PROTOCOL [facility] PRN Reason: Protocol Last Admin: 04/27/17 14:48 Dose: 2 mg Multivitamins/Minerals (Theragran/Minerals Tab*) 1 tab PO DAILY [facility] Last Admin: 04/27/17 08:12 Dose: 1 tab Nicotine (Nicotine Inhaler*) 10 mg INH Q2H PRN PRN Reason: CRAVING Last Admin: 04/26/17 12:49 Dose: 10 mg Nicotine (Nicotine Patch 14 Mg/24 Hr*) 1 patch TRANSDERM DAILY [facility] Last Admin: 04/27/17 08:12 Dose: 1 patch Pharmacy Profile Note (Nicotine Patch Removal Note*) 1 note FOLLOW UP 0600 [facility] Last Admin: 04/27/17 06:04 Dose: 1 note Thiamine HCl (Vitamin B-1 Tab*) 100 mg PO DAILY [facility] Last Admin: 04/27/17 08:12 Dose: 100 mg Vital Signs - 8 hr 04/27/17 04/27/17 04/27/17 08:09 08:10 08:18 Temperature 98.1 F Pulse Rate 95 Respiratory 16 18 18 Rate Blood Pressure 143/96 (mmHg) O2 Sat by Pulse 99 Oximetry 04/27/17 04/27/17 04/27/17 10:03 10:13 12:07 Temperature 97.7 F 98.3 F Pulse Rate 95 129 Respiratory 19 18 19 Rate Blood Pressure 122/80 115/90 (mmHg) O2 Sat by Pulse 100 Oximetry 04/27/17 04/27/17 04/27/17 12:15 12:30 14:15 Temperature Pulse Rate Respiratory 20 20 16 Rate Blood Pressure (mmHg) O2 Sat by Pulse Oximetry 04/27/17 04/27/17 04/27/17 14:17 14:34 14:48 Temperature 99.1 F Pulse Rate 117 Respiratory 16 16 16 Rate Blood Pressure 111/79 (mmHg) O2 Sat by Pulse 97 Oximetry Oxygen Devices in Use Now: None Appearance: lying flat, NAD Eyes: No Scleral Icterus, PERRLA Ears/Nose/Mouth/Throat: Clear Oropharnyx, Mucous Membranes Moist Neck: NL Appearance and Movements; NL JVP, Trachea Midline Respiratory: Symmetrical Chest Expansion and Respiratory Effort, Clear to Auscultation Cardiovascular: RRR Abdominal: NL Sounds; No Tenderness; No Distention, No Hepatosplenomegaly Lymphatic: No Cervical Adenopathy Extremities: No Edema Skin: No Rash or Ulcers Neurological: - - AOx2 to self and "hospital" mildly tremulous with arms outstretched Result Diagrams: 04/25/17 05:05 04/27/17 09:15 Additional Lab and Data: Lab Results 04/21/17 04/21/17 04/21/17 Range/Units 13:16 13:16 13:16 WBC 5.9 (3.5-10.8) 10^3/ul RBC 4.34 (4.0-5.4) 10^6/ul Hgb 14.2 (14.0-18.0) g/dl Hct 41 L (42-52) % MCV 95 H (80-94) fL MCH 33 H (27-31) pg MCHC 35 (31-36) g/dl RDW 14 (10.5-15) % Plt Count 92 L (150-450) 10^3/ul MPV 8 (7.4-10.4) um3 Neut % (Auto) 75.4 (38-83) % Lymph % (Auto) 16.1 L (25-47) % Leslie % (Auto) 7.7 (1-9) % Eos % (Auto) 0.1 (0-6) % Baso % (Auto) 0.7 (0-2) % Absolute Neuts (auto) 4.5 (1.5-7.7) 10^3/ul Absolute Lymphs (auto) 1.0 (1.0-4.8) 10^3/ul Absolute Monos (auto) 0.5 (0-0.8) 10^3/ul Absolute Eos (auto) 0 (0-0.6) 10^3/ul Absolute Basos (auto) 0 (0-0.2) 10^3/ul Absolute Nucleated RBC 0 10^3/ul Nucleated RBC % 0 Hem Pathologist Commnt Pending INR (Anticoag Therapy) 0.99 (0.77-1.02) Sodium 136 (133-145) mmol/L Potassium 3.5 (3.5-5.0) mmol/L Chloride 99 L (101-111) mmol/L Carbon Dioxide 21 L (22-32) mmol/L Anion Gap 16 H (2-11) mmol/L BUN 22 (6-24) mg/dL Creatinine 0.89 (0.67-1.17) mg/dL Est GFR ( Amer) 115.4 (>60) Est GFR (Non-Af Amer) 89.8 (>60) BUN/Creatinine Ratio 24.7 H (8-20) Glucose 177 H (70-100) mg/dL Lactic Acid (0.5-2.0) mmol/L Calcium 9.5 (8.6-10.3) mg/dL Magnesium 1.3 L (1.9-2.7) mg/dL Total Bilirubin 1.20 H (0.2-1.0) mg/dL AST 82 H (13-39) U/L ALT 72 H (7-52) U/L Alkaline Phosphatase 51 (34-104) U/L Ammonia (16-53) mol/L Total Protein 7.9 (6.4-8.9) g/dL Albumin 4.7 (3.2-5.2) g/dL Globulin 3.2 (2-4) g/dL Albumin/Globulin Ratio 1.5 (1-3) Serum Alcohol < 10 (<10) mg/dL 04/21/17 04/21/17 Range/Units 13:16 13:16 WBC (3.5-10.8) 10^3/ul RBC (4.0-5.4) 10^6/ul Hgb (14.0-18.0) g/dl Hct (42-52) % MCV (80-94) fL MCH (27-31) pg MCHC (31-36) g/dl RDW (10.5-15) % Plt Count (150-450) 10^3/ul MPV (7.4-10.4) um3 Neut % (Auto) (38-83) % Lymph % (Auto) (25-47) % Leslie % (Auto) (1-9) % Eos % (Auto) (0-6) % Baso % (Auto) (0-2) % Absolute Neuts (auto) (1.5-7.7) 10^3/ul Absolute Lymphs (auto) (1.0-4.8) 10^3/ul Absolute Monos (auto) (0-0.8) 10^3/ul Absolute Eos (auto) (0-0.6) 10^3/ul Absolute Basos (auto) (0-0.2) 10^3/ul Absolute Nucleated RBC 10^3/ul Nucleated RBC % Hem Pathologist Commnt INR (Anticoag Therapy) (0.77-1.02) Sodium (133-145) mmol/L Potassium (3.5-5.0) mmol/L Chloride (101-111) mmol/L Carbon Dioxide (22-32) mmol/L Anion Gap (2-11) mmol/L BUN (6-24) mg/dL Creatinine (0.67-1.17) mg/dL Est GFR ( Amer) (>60) Est GFR (Non-Af Amer) (>60) BUN/Creatinine Ratio (8-20) Glucose (70-100) mg/dL Lactic Acid 5.1 H* (0.5-2.0) mmol/L Calcium (8.6-10.3) mg/dL Magnesium (1.9-2.7) mg/dL Total Bilirubin (0.2-1.0) mg/dL AST (13-39) U/L ALT (7-52) U/L Alkaline Phosphatase (34-104) U/L Ammonia 62 H (16-53) mol/L Total Protein (6.4-8.9) g/dL Albumin (3.2-5.2) g/dL Globulin (2-4) g/dL Albumin/Globulin Ratio (1-3) Serum Alcohol (<10) mg/dL Microbiology and Other Data: Microbiology 04/23/17 14:30 Nasal Screen MRSA (PCR)(VANESSA) - Final Nasal Mrsa Negative Assess/Plan/Problems-Billing Assessment: 52 yo with h/o ETOH abuse presented after a seizure - Patient Problems (1) Delirium tremens Comment: improved still requiring ativan per [facility] off precedex since 04/25 c/w WAM monitor (2) Tobacco abuse Comment: patch and inhaler (3) Alcohol withdrawal seizure Comment: in setting of etoh withdrawal c/w WAM Cont thiamine and Folate. (4) Hypomagnesemia Comment: IV mg 04/27 (5) DVT prophylaxis Comment: lovenox Status and Disposition: inpatient. Suspect 1-2 more days
[2017-04-27] MEDS: Enoxaparin(*) 40 MG/0.4 ML SYR SUBCUT SCH (15:40)
[2017-04-28] MEDS: Nicotine Patch Removal NOTE FOLLOW UP SCH (05:37)
[2017-04-28] MEDS: Multivitamins/Minerals TAB PO SCH (08:17)
[2017-04-28] MEDS: Folic Acid TAB* 1 MG PO SCH (08:17)
[2017-04-28] MEDS: Thiamine TAB* 100 MG TAB PO SCH (08:18)
[2017-04-28] MEDS: Nicotine PATCH 14 MG/24 HR* PATCH TRANSDERM SCH (08:18)
[2017-04-28] MEDS ORDERED: Magnesium Oxide TAB* 400 MG PO SCH (09:00)
[2017-04-28 16:40] VITALS: BP 117/84
--- NOTE | 2017-04-29 13:39 | DS ---
DISCHARGE SUMMARY: DATE OF ADMISSION: 04/22/17 DATE OF DISCHARGE: 04/28/17 DISCHARGE DIAGNOSES: 1. Alcohol withdrawal seizure. 2. Severe delirium tremens due to alcohol withdrawal. 3. Hypomagnesemia. SECONDARY DIAGNOSES: 1. History of alcoholism. 2. History of chronic lower back pain. MEDICATIONS AT DISCHARGE: 1. Multivitamin 1 tablet daily. 2. Magnesium oxide 800 mg p.o. daily for 7 days. FOLLOWUP: At discharge, the patient recommended to follow up with primary care provider of his [facility] and not to drive until cleared by his primary care provider. HOSPITALIZATION COURSE: Tadeo Donahue is a 52-year-old male with history of alcoholism who presented to the hospital after alcohol withdrawal seizure. He was admitted to the hospital; initially he did ve ry well for couple of days with Ativan taper, but on the third day he got severe delirium tremens wit h hallucinations and agitation in withdrawal. He needed to be transferred to the intensive care unit , treated with Precedex drip and benzodiazepines. Eventually, he was able to transferred out of the ICU and for the past 24 hours he did not require any Ativan treatment for withdrawal. The patient cu rrently states that he will never drink alcohol again. He did see social work for evaluation and was not interested in for further alcohol rehabilitation. He was noted to be hypomagnesemic and was par tially replaced but he is going to be placed on magnesium at home for the next seven days. He is als o going to be encouraged to take a multivitamin daily. PHYSICAL EXAMINATION: At the time of discharge, blood pressure 118/75, heart rate of 99 and regular, respiratory rate 16, oxygen saturation 100% on room air, temperature of 98.1. General: The patient is a very pleasant 52-year-old female, who is in no acute distress. Alert, awake and oriented x3. HEENT: Head atraumatic, normocephalic. Eyes: Pupils are equal, reactive to light and accommodation . Oropharynx is clear. Mucosa moist. Neck: Supple, no JVD. No bruit bilaterally. Cardiovascular : Regular rate and rhythm. No murmurs. Respiratory: Clear to auscultation bilaterally. Abdomen: Soft, nontender, bowel sounds present in all quadrants. Extremities: There is no edema, Pulses are +2 bilaterally. No clubbing or cyanosis. On neuro evaluation, speech clear. Cranial nerves II through XII grossly intact. Motor strength is 5 /5 bilaterally. Please also note that the patient has had thrombocytopenia most likely due to chronic alcohol use koko t has gradually improved. On 04/25/17, platelet level was 101. The remaining lab work is as follows. On 04/25/17, white blood cell count of 6.4, hemoglobin is 13.7, hematocrit of 40 and platelets of 101 . On 04/27/17, sodium of 135, potassium 4.0, chloride 103, carbon dioxide 26, BUN 12, creatinine 0.81. Please note that this is a short summary of the patient's hospital stay. Please refer to further [facility] records for details. TIME SPENT: Approximately 35 minutes was spent on the patient's discharge. [id number]/[facility] #: [id number]
== END 2017-04-28 17:30 | disposition home or self-care (01) | DRG 775 ==
LOC: ED 12:59 → MED 15:44 → OBSVTOIN 04-22 09:00 → MED 04-22 09:59 → ICU 04-23 13:25 → MED 04-25 18:13
PROVIDERS: ADMIT Internal Medicine; ATTEND Internal Medicine
DX: F10.239 Alcohol dependence with withdrawal, unspecified (principal); F10.231 Alcohol dependence with withdrawal delirium; D69.59 Other secondary thrombocytopenia; G40.89 Other seizures; E83.42 Hypomagnesemia; G89.29 Other chronic pain; M54.5 Low back pain; Y90.9 Presence of alcohol in blood, level not specified; F17.210 Nicotine dependence, cigarettes, uncomplicated; Z83.3 Family history of diabetes mellitus
CPT/HCPCS: 36415; 70450; 80048; 80053; 80307; 80320; 81003; 82140; 83605; 83735; 84100; 85025; 85027; 85060; 85610; 87641; 93005; A9270-GY; G0378; G0480; J1630; J1650; J2060; J3010; J3360; J3411; J3475; J3486